=== PATIENT | female | born 1955 | race Caucasian/White ===

== ENCOUNTER → 2018-04-20 | Outpatient (CLI) | payer OTHER ==
[~2018-04-20] MED LIST: (None)20 M1 PO; ACET325 PO; ALBU90OI INH; ALPR1 PO; AMIT25 PO; AMLO5 PO; ASPI81CH PO; ATOR80 PO; BENZ100A PO; BUSP15 PO; CODGUAEL PO; DULO60 PO; FLUSAL2505 INH; FURO20 PO; ISOMON20; Isosorbide Mono30 MG PO; LEVSOD50 PO; METCAR500 PO; METF500 PO; METO25ER PO; NEBI5 PO; POTCHL10ER PO; PRED20 PO; TIOT18 INH; Zegerid 40 MG1 EACH PO; Zithromax250 MG PO
[2018-04-20 09:22] LABS: BASOPHILS ABSOLUTE AUTO 0.05 K/mm3 (0.00-0.23); BASOPHILS PERCENT AUTO 0 % (0-2); EOSINOPHILS ABSOLUTE AUTO 0.21 K/mm3 (0.00-0.68); EOSINOPHILS PERCENT AUTO 2 % (0-6); Hematocrit 37.4 % (33.0-51.0); Hemoglobin 12.6 g/dL (11.5-16.0); IMMATURE GRAN ABSOLUTE AUTO 0.07 K/mm3 (0.00-0.10); IMMATURE GRAN PERCENT AUTO 1 % (0-1); LYMPHOCYTES ABSOLUTE AUTO 1.32 K/mm3 (0.84-5.20); LYMPHOCYTES PERCENT AUTO 10 % (21-46); MONOCYTES ABSOLUTE AUTO 1.09 K/mm3 (0.16-1.47); MONOCYTES PERCENT AUTO 9 % (4-13); Mean Corpuscular HGB 29.6 pg (26.0-34.0); Mean Corpuscular HGB Conc 33.7 g/dL (31.5-36.5); Mean Corpuscular Volume 88 fL (80-100); Mean Platelet Volume 9.5 fL (9.1-12.4); NEUTROPHILS ABSOLUTE AUTO 10.04 K/mm3 (1.96-9.15); NEUTROPHILS PERCENT AUTO 79 % (41-73); Platelet Count 335 K/mm3 (150-400); RDW Coefficient Variation 15.1 % (11.7-14.2); RDW Standard Deviation 47.3 fL (35.1-46.3); Red Blood Cell Count 4.26 M/mm3 (3.80-5.20); White Blood Cell Count 12.78 K/mm3 (4.00-11.30)
== END | disposition home or self-care (01) ==
LOC: LAB SHORT 09:19 → LAB EV 09:19
PROVIDERS: Physician Assistant
DX: R51 Headache (principal)
CPT/HCPCS: 85025

== ENCOUNTER 2018-06-28 10:44 | Day surgery (SDC) | payer OTHER ==
[~2018-06-28] VITALS: Ht 154.9 cm; Wt 61.8 kg
== END 2018-06-28 14:05 | disposition home or self-care (01) ==
LOC: ORSCSDS 10:44
PROVIDERS: Student in an Organized Health Care Education/Training Program
PROC: 0DB58ZX Excision of Esophagus, Via Natural or Artificial Opening Endoscopic, Diagnostic (ICD-10-PCS; principal; 2018-06-28 13:45)
DX: R13.10 Dysphagia, unspecified (principal); B37.81 Candidal esophagitis; K22.2 Esophageal obstruction; K44.9 Diaphragmatic hernia without obstruction or gangrene; F41.8 Other specified anxiety disorders; E03.9 Hypothyroidism, unspecified; I10 Essential (primary) hypertension; E11.9 Type 2 diabetes mellitus without complications; Z87.891 Personal history of nicotine dependence; Z79.84 Long term (current) use of oral hypoglycemic drugs; Z79.82 Long term (current) use of aspirin; Z79.899 Other long term (current) drug therapy
CPT/HCPCS: 82947; 88305; 88312; J2704; J7120

== ENCOUNTER 2019-02-24 13:52 | Day surgery (SDC) | payer OTHER ==
[~2019-02-24] VITALS: Ht 157.5 cm; Wt 58.0 kg
[2019-02-24] MEDS ORDERED: METO25ER PO (14:49)
[2019-02-24] MEDS ORDERED: TIZA4 (14:49)
[2019-02-24] MEDS ORDERED: LIOT50 PO (14:49)
[2019-02-24] MEDS ORDERED: OMEPRAZOLE20 MG PO (14:49)
== END 2019-02-24 16:56 | disposition home or self-care (01) ==
LOC: ORSCSDS 13:52
PROVIDERS: Student in an Organized Health Care Education/Training Program
PROC: 0DB68ZX Excision of Stomach, Via Natural or Artificial Opening Endoscopic, Diagnostic (ICD-10-PCS; principal; 2019-02-24 15:15)
PROC: 0DB58ZX Excision of Esophagus, Via Natural or Artificial Opening Endoscopic, Diagnostic (ICD-10-PCS; principal; 2019-02-24 15:15)
PROC: 0D758ZZ Dilation of Esophagus, Via Natural or Artificial Opening Endoscopic (ICD-10-PCS; principal; 2019-02-24 15:15)
PROC: 0DB48ZX Excision of Esophagogastric Junction, Via Natural or Artificial Opening Endoscopic, Diagnostic (ICD-10-PCS; principal; 2019-02-24 15:15)
DX: R13.10 Dysphagia, unspecified (principal); K22.2 Esophageal obstruction; I25.10 Atherosclerotic heart disease of native coronary artery without angina pectoris; I10 Essential (primary) hypertension; K21.9 Gastro-esophageal reflux disease without esophagitis; K44.9 Diaphragmatic hernia without obstruction or gangrene; E11.9 Type 2 diabetes mellitus without complications; F41.8 Other specified anxiety disorders; Z79.82 Long term (current) use of aspirin; Z79.84 Long term (current) use of oral hypoglycemic drugs; Z79.899 Other long term (current) drug therapy
CPT/HCPCS: 82947; 88305; 88312; 88342; C1726; J2704; J7120

== ENCOUNTER → 2021-03-12 | Outpatient (CLI) | payer MEDICARE, OTHER ==
[~2021-03-12] MED LIST changes: -ASPI81CH PO; +Aspirin EC81 MG PO; +B Complex-Foli1 EACH PO; -BUSP15 PO; +Buspirone HCl7.5 MG PO; +EZET10 PO; +LIOT25 PO; +MAGNESIUM OXID500 MG PO; +MONT10T PO; +OMEPRAZOLE20 MG PO; +OXYC5 PO; +TIZA4 PO; +VITAMIN D31000 UNI1 PO
== END | disposition home or self-care (01) ==
LOC: LAB SHORT 11:35
PROVIDERS: Family Medicine
DX: M96.1 Postlaminectomy syndrome, not elsewhere classified (principal); Z79.899 Other long term (current) drug therapy
CPT/HCPCS: G0480

== ENCOUNTER → 2021-08-27 | Outpatient (CLI) | payer OTHER ==
[2021-08-31 13:30] LABS: Stool Occult Bld Immuno 1 Negative (NEGATIVE)
== END | disposition home or self-care (01) ==
LOC: LAB SHORT 12:45 → LAB 12:45
PROVIDERS: Family Medicine
DX: Z12.11 Encounter for screening for malignant neoplasm of colon (principal)
CPT/HCPCS: G0328

== ENCOUNTER → 2022-03-18 | Outpatient (CLI) | payer OTHER ==
[~2022-03-18] MED LIST changes: +BENZ100A; +MERIBIN5 MG; +ONDA4ODT; +STIOLTO RESPIMAT4 G1; +VENTAVIS
== END | disposition home or self-care (01) ==
LOC: LAB SHORT 15:00 → LAB 15:00
PROVIDERS: Nurse Practitioner Family
DX: M96.1 Postlaminectomy syndrome, not elsewhere classified (principal)
CPT/HCPCS: G0480

== ENCOUNTER 2022-07-09 10:49 | Day surgery (SDC) | payer OTHER ==
[~2022-07-09] VITALS: Ht 157.5 cm; Wt 69.0 kg
[2022-07-09] VITALS (16 sets, daily range): BP systolic 108–181; BP diastolic 69–124
[~2022-07-09 10:49] MED LIST changes: +BIOTIN 5000 MCG SL; +HYDACE10B PO; +PANT40 PO
--- NOTE | 2022-07-09 15:14 | NUR ---
PATIENT ARRIVED TO RECOVERY ROOM WITH L GROIN SHEATH AND R PEDAL SHEATH IN PLACE. VSS ON ROOM AIR. PATIENT CONVERSING APPROPRIATELY.
--- NOTE | 2022-07-09 16:00 | NUR ---
L GROIN SHEATH PULLED, MANUAL PRESSURE HELD FOR 20 MINUTES. VSS ON ROOM AIR. SITE C/D/I SOFT/NONTENDER, NO EVIDENCE OF HEMATOMA. TEGADERM IN PLACE.
--- NOTE | 2022-07-09 16:07 | NUR ---
L GROIN SHEATH REMOVED AT 1538, PRESSURE CONTINUING AT THIS TIME WITH SHEY FINALIZING HOLD/DRESSING. PT MIKE WELL, R FOOT DP SHEATH WILL BE PULLED SHORTLY.
--- NOTE | 2022-07-09 16:30 | NUR ---
R PEDAL SHEATH PULLED, LEDA DRESSING IN PLACE, DRY AND INTACT. VSS ON ROOM AIR. PATIENT DENYING ANY PAIN.
--- NOTE | 2022-07-09 17:26 | NUR ---
BEDSIDE REPORT GIVEN TO MIKAELA Euceda GROIN SITE AND PEDAL SITE EXAMINED. VSS ON ROOM AIR
--- NOTE | 2022-07-09 17:56 | NUR ---
ASSUMED CARE OF PT. REPORT FROM SIOBHAN MANN. PT A&Ox4. PT SITING UP IN BED EATING FOOD. PEDAL SITE SOFT AND NON-TENDER W/ NO BLEEDING NOTED. GROIN SITE SITE AND NON-TENDER PER PT W/ NO BLEEDING NOTED WELL.
--- NOTE | 2022-07-09 19:07 | NUR ---
PRIOR TO DC THE PT BEGAN COMPLAINING OF NAUSEA AFTER STANDING UP TO GET CHANGED INTO CLOTHES. DR SKELTON CALLED AND INFORMED. PT GIVEN 4 MG ZOFRAN PIV PER DR SKELTON. DR SKELTON STILL OK TO DC HOME. PT REPORTS DECREASE IN NAUSEA. PT GIVEN DC INSTRUCTIONS AND VERBALIZED UNDERSTANDING. IV OUT. BOTH GROIN AND PEDAL SITE SOFT AND NON-TENDER PER PT. NO BLEEDING NOTED. PT TAKEN TO [facility] VIA WC. [facility]SPORT TO TAKE PT HOME. PT STS SHE HAS SOMEONE WHO CAN STAY WITH HER TONIGHT.
== END 2022-07-09 19:00 | disposition home or self-care (01) ==
LOC: MHTC 10:49
DX: E11.51 Type 2 diabetes mellitus with diabetic peripheral angiopathy without gangrene (principal); I70.213 Atherosclerosis of native arteries of extremities with intermittent claudication, bilateral legs; I11.0 Hypertensive heart disease with heart failure; I50.9 Heart failure, unspecified; E78.5 Hyperlipidemia, unspecified; I25.10 Atherosclerotic heart disease of native coronary artery without angina pectoris; Z95.5 Presence of coronary angioplasty implant and graft; Z87.891 Personal history of nicotine dependence; Z88.0 Allergy status to penicillin; Z88.8 Allergy status to other drugs, medicaments and biological substances; Z79.82 Long term (current) use of aspirin; Z79.899 Other long term (current) drug therapy
CPT/HCPCS: 76937; 99152; 99153; C1725; C1769; C1887; C1894; J1200; J1644; J1720; J2250; J2405; J3010; J7030; J7050; Q9967

== ENCOUNTER 2022-07-23 10:37 | Inpatient (IN) | payer OTHER, MEDICARE ==
--- NOTE | 2022-07-22 16:25 | NUR ---
DURING CHART PREP, I NOTED THE POTASSIUM OF 2.[address] REPORT[address] THIS TO DR[address] SKELTON AND MARYANA HIS BEN.
[~2022-07-23] VITALS: Ht 157.5 cm; Wt 64.4 kg
[2022-07-23] VITALS (26 sets, daily range): BP systolic 79–155; BP diastolic 58–96
[~2022-07-23 10:37] MED LIST changes: -LEVSOD50 PO; +LEVSOD75 PO; -ONDA4ODT; +ONDA4ODT SL
[2022-07-23] MEDS ORDERED: OMEP20ER PO (10:55)
[2022-07-23] MEDS ORDERED: IBUP800 PO (10:55)
[2022-07-23] MEDS ORDERED: TIZA4 PO (10:56)
[2022-07-23 11:51] LABS: Bun/Creatinine Ratio 10.8 (12.0-20.0); Calcium, Blood 8.7 mg/dL (8.5-10.1); Creatinine, Blood 0.65 mg/dL (0.40-1.00); Potassium, Blood 4.4 mmol/L (3.5-5.5)
[2022-07-23 14:51] LABS: BASOPHILS ABSOLUTE AUTO 0.05 K/mm3 (0.00-0.23); BASOPHILS PERCENT AUTO 0 % (0-2); EOSINOPHILS ABSOLUTE AUTO 0.18 K/mm3 (0.00-0.68); EOSINOPHILS PERCENT AUTO 1 % (0-6); Hematocrit 29.9 % (33.0-51.0); IMMATURE GRAN ABSOLUTE AUTO 0.22 K/mm3 (0.00-0.10); IMMATURE GRAN PERCENT AUTO 1 % (0-1); LYMPHOCYTES ABSOLUTE AUTO 2.25 K/mm3 (0.84-5.20); LYMPHOCYTES PERCENT AUTO 14 % (21-46); MONOCYTES ABSOLUTE AUTO 0.69 K/mm3 (0.16-1.47); MONOCYTES PERCENT AUTO 4 % (4-13); Mean Corpuscular HGB 30.5 pg (26.0-34.0); Mean Corpuscular HGB Conc 33.4 g/dL (31.5-36.5); Mean Corpuscular Volume 91 fL (80-100); Mean Platelet Volume 9.3 fL (9.1-12.4); NEUTROPHILS ABSOLUTE AUTO 12.28 K/mm3 (1.96-9.15); NEUTROPHILS PERCENT AUTO 78 % (41-73); NRBC ABSOLUTE 0.02 K/mm3 (0.00-0.02); NRBC Auto 0.1 /100 WBC (0.0-0.2); Platelet Count 383 K/mm3 (150-400); RDW Coefficient Variation 14.9 % (11.7-14.2); RDW Standard Deviation 48.6 fL (35.1-46.3); Red Blood Cell Count 3.28 M/mm3 (3.80-5.20); White Blood Cell Count 15.67 K/mm3 (4.00-11.30)
--- NOTE | 2022-07-23 18:33 | NUR ---
ARRIVED TO ICU AT 1701 NEURO: A/O CARDIAC: SR, BP 125/62 RESP: ROOM AIR, O2 SAT > 94% GI: DENIES N/V. CL LIQ DIET ORDERED FOR DINNER, THEN NPO AFTER MIDNIGHT : LITTLE FOR STRICT I/O. UA ORDERED SKIN: ACCESS SITE LEFT GROIN, OOZING, SOFT. PALPABLE LUMP UNDER ACCESS SITE, PER DR. SKELTON, THIS IS A LYMPH NODE CONFIRMED BY ULTRASOUND. MEASUREMENTS OF BILAT LEGS FOLLOWS: RIGHT (AFFECTED) LEG - MEASURED FROM THE ANKLE UP, ALL AREAS MEASURED ARE MARKED WITH PERMANENT MARKER. ANKLE - 7.5 CM CALF - 28.5 CM BELOW KNEE - 32.0 CM THIGH - 40 CM LEFT (UNAFFECTED) LEG ANKLE - 7.5 CM CALF - 28.0 CM BELOW KNEE - 31 CM THIGH - 40 CM IV: PIV X2, ANGIOMAX INFUSING. PSYCH: CONTACTED PT'S NEIGHBOR TO REQUEST SHE CARE FOR PT'S DOG. SHE AGREES TO PICK DOG UP. CONTACTED PT'S DAUGHTER AND GRANDDAUGHTER. BOTH UPDATED ON POC AND CURRENT STATUS DR. SKELTON TO BEDSIDE, DR. DALY TO BEDSIDE, CONFIRMED VIA PHONE THAT ER PROVIDER WILL BE ADMITTING PT. DR. DALY WILL CONTINUE TO FOLLOW PT TOMORROW. CONTACT INFORMATION GIVEN TO ONCOMING SHIFT.
[2022-07-23 20:35] LABS: Hematocrit 32.6 % (33.0-51.0); Hemoglobin 10.5 g/dL (11.5-16.0)
[2022-07-23 22:15] LABS: Source, Urine Foley catheter
[2022-07-23 22:28] LABS: Appearance, Urine Hazy (Clear); Bilirubin, Urine Neg (Neg); Blood, Urine 5+ (Neg); Color, Urine Yellow (P-Yellow); Glucose Qualitative, Urine Neg (Neg); Ketones, Urine 2+ (Neg); Leukocyte Esterase, Urine 1+ (Neg); Nitrite, Urine Neg (Neg); Protein, Urine 2+ (Neg); Specific Gravity, Urine 1.005 (1.003-1.022); Urobilinogen, Urine 1+ (Normal)
[2022-07-23 22:40] LABS: Bacteria Few /hpf; Red Blood Cells, Urine 25-50 /hpf (0-2); Squamous Epithelial Cells Few /hpf (Few)
--- NOTE | 2022-07-23 22:42 | NUR ---
LEG CIRCUMFRANCES DONE FOLLOWED: RIGHT ANKLE 17 CM, CALF 29CM, BELOW KNEE 32.7, THIGH 40CM. LEFT ANKLE 17.4, CALF 27, BELOW KNEE 31, THIGH 39. SLIGHT DIFFERANCE NOTED,
[2022-07-24] VITALS (44 sets, daily range): BP systolic 83–163; BP diastolic 49–106
[2022-07-24 05:20] LABS: BASOPHILS ABSOLUTE AUTO 0.03 K/mm3 (0.00-0.23); BASOPHILS PERCENT AUTO 0 % (0-2); EOSINOPHILS ABSOLUTE AUTO 0.01 K/mm3 (0.00-0.68); EOSINOPHILS PERCENT AUTO 0 % (0-6); Hematocrit 27.6 % (33.0-51.0); Hemoglobin 9.1 g/dL (11.5-16.0); IMMATURE GRAN ABSOLUTE AUTO 0.06 K/mm3 (0.00-0.10); IMMATURE GRAN PERCENT AUTO 0 % (0-1); LYMPHOCYTES ABSOLUTE AUTO 2.28 K/mm3 (0.84-5.20); LYMPHOCYTES PERCENT AUTO 15 % (21-46); MONOCYTES ABSOLUTE AUTO 1.27 K/mm3 (0.16-1.47); MONOCYTES PERCENT AUTO 8 % (4-13); Mean Corpuscular HGB 30.4 pg (26.0-34.0); Mean Corpuscular Volume 92 fL (80-100); Mean Platelet Volume 9.5 fL (9.1-12.4); NEUTROPHILS ABSOLUTE AUTO 11.66 K/mm3 (1.96-9.15); NEUTROPHILS PERCENT AUTO 76 % (41-73); NRBC ABSOLUTE 0.05 K/mm3 (0.00-0.02); NRBC Auto 0.3 /100 WBC (0.0-0.2); Platelet Count 375 K/mm3 (150-400); RDW Coefficient Variation 14.9 % (11.7-14.2); RDW Standard Deviation 48.5 fL (35.1-46.3); Red Blood Cell Count 2.99 M/mm3 (3.80-5.20); White Blood Cell Count 15.31 K/mm3 (4.00-11.30)
[2022-07-24 05:37] LABS: Albumin, Blood 2.6 g/dL (3.4-5.0); Albumin/Globulin Ratio 0.7 (0.8-1.8); Bilirubin, Total 0.6 mg/dL (0.1-1.0); Bun/Creatinine Ratio 19.8 (12.0-20.0); Calcium, Blood 7.5 mg/dL (8.5-10.1); Creatinine, Blood 0.56 mg/dL (0.40-1.00); Globulin, Blood 3.5 g/dL (2.2-4.0); Potassium, Blood 3.7 mmol/L (3.5-5.5); Total Protein, Blood 6.1 g/dL (6.4-8.2)
--- NOTE | 2022-07-24 06:52 | NUR ---
PT'S LOWER EXTREMITIES WARM BILAT. DOPPLER PEDAL PULSES. PT HAS HAD PAIN IN LEFT HIP AREA THAT TRAVELS DOWN LEFT LEG. MEDICATED PT WITH FENTANYL THREE TIMES FOR PAIN. CONTINUES ON ANGIOMAX. NO S/S BLEEDING TO NOTE. WILL CONTINUE TO MONITOR PT, AND WILL REPORT OFF TO ONCOMING RN
--- NOTE | 2022-07-24 07:33 | NUR ---
ASSUMED CARE OF PT AT 0715 BEDSIDE REPORT RECEIVED FROM SIOBHAN CLEMENTS. PT IS A/O, NPO, LITTLE PATENT AND DRAINING CLEAR YELLOW URINE. RIGHT LEG MEASUREMENTS ARE LARGELY UNCHANGED. PT C/O TENDERNESS IN THE RIGHT CALF AND RIGHT THIGH. SHE ALSO C/O RIGHT FLANK PAIN. PT IS TEARFUL AND EXPRESSES FEAR ABOUT THIS HOSPITALIZATION. PTT UNABLE TO BE PROCESSED PER LAB, TECH WILL BE COMING TO BEDSIDE TO REDRAW. RN TO CONTINUE TO MONITOR.
[2022-07-24 10:56] LABS: Hematocrit 23.8 % (33.0-51.0); Hemoglobin 8.1 g/dL (11.5-16.0)
--- NOTE | 2022-07-24 11:35 | NUR ---
PT C/O RIGHT FLANK PAIN AND HGB DECREASED TO 9.[address] SKELTON, LEFT MESSAGE REQUESTING RETURN CALL. CALL PLACED TO DR. PACE PT IS EFM PATIENT AND HOSPITALIST IS FOLLOWING. ANGIOMAX INFUSION CONTINUES WITH NO RATE CHANGE. PTT IS 98.2. ADDRESSED WITH DR. SKELTON AT 10:00, D/C DRIP, ORDER PLACED. CT ABD PELVIS ORDERED AND COMPLETED. RESULTS COMMUNICATED WITH DR. SKELTON BY DR. PACE. DR. CANSECO CONSULTED FOR ACUTE CARE MANAGEMENT. HGB DECREASED TO 8.1. TYPE AND SCREEN AND 2 UNITS OF PRBC'S ORDERED BY DR. CANSECO. OFFERED TO UPDATE FAMILY, PT DECLINED AND STATED SHE HAS UPDATED HER GRANDDAUGHTER ALREADY. TYPE AND SCREEN DRAWN AND SENT TO LAB. AWAITING BLOOD PRODUCTS. CONFIRMED BLOOD CONSENT WITH PT.
[2022-07-24 16:16] LABS: Hematocrit 30.5 % (33.0-51.0); Hemoglobin 10.4 g/dL (11.5-16.0)
--- NOTE | 2022-07-24 17:20 | NUR ---
END OF SHIFT SUMMARY NEURO: A/O, PLEASANT AND COOPERATIVE. CARDIAC: SR - ST, BP WNL RESP: 2L NC WHILE ASLEEP, RA WHILE AWAKE TO MAINTAIN O2 SAT > 94% GI: NPO IN ANTICIPATION OF POSSIBLE PROCEDURE TODAY. DIET ORDERED FOR DINNER PT HAS STABILIZED. HAS HAD SIPS OF WATER TODAY, DENIES NAUSEA. CBG 119, NO COVERAGE INDICATED. : LITTLE TO GRAVITY PATENT AND DRAINING CLEAR YELLOW URINE. SKIN: PETECHIAE NOTED TO ABDOMEN AND RIGHT LEG, BEGINNING AT 1200. LEG MEASUREMENTS UNCHANGED. IV: PG TO RIGHT UPPER ARM, PIV TO BILAT FOREARMS, ALL SL. PT TO CT ABD AND PELVIS, RETROPERITONEAL BLEED SEEN ON SCANS. PT REQUIRED 2 UNITS PRBC'S INFUSED, TOLERATED WELL. REPEAT H/H REVEALED RETURN OF H/H TO NEAR BASELINE AT ADMIT. NEXT H/H SCHEDULED FOR [address] CANSECO. PTT TO BE RECHECKED IN AM. NO FAMILY AT BEDSIDE. UPDATED DAUGHTER AND GRANDDAUGHTER VIA PHONE WITH PT'S PERMISSION. PAIN IMPROVED WITH DILAUDID IV, PT RESTING AFTER BLOOD TRANSFUSION.
[2022-07-24 21:22] LABS: Hematocrit 30.3 % (33.0-51.0); Hemoglobin 10.2 g/dL (11.5-16.0)
--- NOTE | 2022-07-24 21:51 | NUR ---
ASSUMPTION OF CARE/ASSESSMENT: ASSUMED CARE OF PT AT 1900. PT IS IN BED, A&O X 4 AND VERY PLEASANT/COOPERATIVE WITH CARE. PT CURRENTLY ON 2L NC WHILE RESTING; LUNG SOUNDS CLEAR, DIM BASES, SPO2 98<, AND NO C/O SOB. PT SR ON MONITOR WITH HR 80-90'S AND SBP 120'S, NO C/O CHEST PAIN AT THIS TIME. HYPOACTIVE BOWEL SOUNDS, ABD SOFT/NON-TENDER; PT TOLERATED DINNER TONIGHT WITH SMALL INTAKE. MEASUREMENTS THE SAME LAST SHIFT ON R. LEG; NO INCREASE IN SWELLING IN R. LEG. PT HAS MINIMAL PAIN IN R. LEG BUT IT IS TOLERABLE. CALF IS NOT TENDER TO TOUCH, PT C/O PAIN IN R. CALF WHEN REPOSITIONING/BEARING WEIGHT. PT ABLE TO TRANSFER TO CHAIR AT BEDSIDE FOR BED LINEN CHANGE; TOLERATED VERY WELL. PT GRANDDAUGHTER, ALBERTO, CALLED UNIT AND UPDATED ON PT'S STATUS, ALL QUESTIONS ANSWERED AT THIS TIME. BED LOWERED, CALL LIGHT IN REACH, WILL CONTINUE TO MONITOR.
[2022-07-25] VITALS (36 sets, daily range): BP systolic 87–155; BP diastolic 53–93
--- NOTE | 2022-07-25 06:26 | NUR ---
SHIFT SUMMARY: NO ACUTE CHANGES THROUGHOUT THE NIGHT. PT CBG STABLE AND NO INSULIN COVERAGE REQUIRED; MOST RECENT CBG @ 0600 AT 88. PT REQUESTED ONE 4-OZ [employer] AT THIS TIME, AND STILL DOES NOT HAVE AN APPETITE. PT WAS ABLE TO SLEEP THROUGHOUT THE NIGHT. NO INCREASE IN MEASUREMENTS IN R. CALF; PT STILL DOES NOT HAVE SIGNIFICANT PAIN COMPLAINTS. VSS THROUGHOUT THE NIGHT. BED LOWERED, CALL LIGHT IN PLACE, WILL CONTINUE TO MONITOR UNTIL ONCOMING RN ARRIVES.
[2022-07-25 07:16] LABS: BASOPHILS ABSOLUTE AUTO 0.06 K/mm3 (0.00-0.23); BASOPHILS PERCENT AUTO 0 % (0-2); EOSINOPHILS ABSOLUTE AUTO 0.11 K/mm3 (0.00-0.68); EOSINOPHILS PERCENT AUTO 1 % (0-6); Hematocrit 30.6 % (33.0-51.0); Hemoglobin 10.2 g/dL (11.5-16.0); IMMATURE GRAN ABSOLUTE AUTO 0.05 K/mm3 (0.00-0.10); IMMATURE GRAN PERCENT AUTO 0 % (0-1); LYMPHOCYTES PERCENT AUTO 14 % (21-46); MONOCYTES ABSOLUTE AUTO 1.72 K/mm3 (0.16-1.47); MONOCYTES PERCENT AUTO 12 % (4-13); Mean Corpuscular HGB 29.6 pg (26.0-34.0); Mean Corpuscular HGB Conc 33.3 g/dL (31.5-36.5); Mean Corpuscular Volume 89 fL (80-100); Mean Platelet Volume 9.4 fL (9.1-12.4); NEUTROPHILS PERCENT AUTO 73 % (41-73); NRBC ABSOLUTE 0.06 K/mm3 (0.00-0.02); NRBC Auto 0.4 /100 WBC (0.0-0.2); Platelet Count 280 K/mm3 (150-400); RDW Coefficient Variation 16.4 % (11.7-14.2); RDW Standard Deviation 52.2 fL (35.1-46.3); Red Blood Cell Count 3.45 M/mm3 (3.80-5.20); White Blood Cell Count 14.84 K/mm3 (4.00-11.30)
[2022-07-25 07:28] LABS: Bun/Creatinine Ratio 14.7 (12.0-20.0); Calcium, Blood 7.3 mg/dL (8.5-10.1); Creatinine, Blood 0.68 mg/dL (0.40-1.00); Potassium, Blood 3.2 mmol/L (3.5-5.5)
--- NOTE | 2022-07-25 09:34 | NUR ---
AM NOTE... ASSUMED CARE OF PT AT 0700. PT IS A&Ox4. PT C/O OF 09/18 TO HER RLE WITH MOVEMENT. SHE IS IN SR IN THE 90'S BP STABLE. LEFT GROIN SITE IS STABLE. PT DENIES ANY ABD PAIN AT THIS TIME. THE PT'S RIGHT LEG IS WARM TO THE TOUCH PEDAL PULSES ARE FAINT BUT PALPABLE, TIBIAL PULSES FOUND WITH DOPPLER. PT'S BP IS STABLE WITH MAPS >65. CALL LIGHT IN REACH WILL CONTINUE TO MONITOR.
--- NOTE | 2022-07-25 11:37 | NUR ---
PT TRANSFER.... PT TRANSFERED TO MEDICAL FLOOR, ALL OF PT'S BELONGINGS WERE PACKED AND SENT WITH THE PT. REPORT GIVEN TO YVONNE Terry RN. PT'S VSS PT'S LITTLE WAS REMOVED WNL AT 1030 AM. PT HAS NOT VOIDED SINCE REMOVAL.
--- NOTE | 2022-07-25 12:04 | NUR ---
PT TRANSFER PT ARRIVED TO THE MEDICAL FLOOR FROM THE ICU VIA WHEELCHAIR. THE PT IS A/OX4, PLEASANT AND COOPERATIVE, APPEARS TO BE BREATHING EASILY ON RA AT THIS TIME. PT REPORTS RIGHT GROIN AND BACK PAIN. PT MEDICATED FOR PAIN. PT ORIENTED TO THE ROOM LAYOUT AND CALL SYSTEM. REPORT TAKEN FROM ESTRELLITA SAP ABAP DEVELOPER.
--- NOTE | 2022-07-25 19:25 | NUR ---
PT IS A/OX4, PLEASANT AND COOPERATIVE, THE PT IS UP WITH ASSIST USEING THE FWW. PT HAS PAIN IN HER RLE MORE WITH AMBULATION. PT WAS MEDICATED FOR PAIN T/O THE DAY. THE PT WORKED WITH THE OCUPATIONAL THERAPIST TODAY. PT APPEARS TO BE BREATHING EASILY ON RA AT THIS TIME. CALL LIGHT IN REACH WILL CONTINUE TO MONIOTR AND ASSESS FOR CHANGES
[2022-07-26 03:54] VITALS: BP 136/69
--- NOTE | 2022-07-26 06:36 | NUR ---
SHIFT SUMMARY: PT A&O X4. PT PLEASANT AND COOPERATIVE WITH CARE. NO ACUTE CHANGES WITH PT THIS SHIFT. PT C/O 08/18 PAIN THIS SHIFT IN R.LEG. MEDICATED PER EMAR AND HAS NOT C/O PAIN AGAIN. OFFERED PAIN MEDICATION WITH MORNING MEDS BUT DECLINED OFFER. PT SB ASSIST WITH FWW TO RESTROOM. PT PAINFUL WITH AMBULATION BUT ABLE TO TOLERATE WALKING SHORT DISTANCES. CALL LIGHT IN REACH. BED IN LOWEST POSITION. WILL CONTINUE TO MONITOR.
[2022-07-26 07:07] LABS: BASOPHILS ABSOLUTE AUTO 0.05 K/mm3 (0.00-0.23); BASOPHILS PERCENT AUTO 0 % (0-2); EOSINOPHILS ABSOLUTE AUTO 0.11 K/mm3 (0.00-0.68); EOSINOPHILS PERCENT AUTO 1 % (0-6); Hematocrit 33.1 % (33.0-51.0); Hemoglobin 11.1 g/dL (11.5-16.0); IMMATURE GRAN ABSOLUTE AUTO 0.05 K/mm3 (0.00-0.10); IMMATURE GRAN PERCENT AUTO 0 % (0-1); LYMPHOCYTES ABSOLUTE AUTO 1.84 K/mm3 (0.84-5.20); LYMPHOCYTES PERCENT AUTO 13 % (21-46); MONOCYTES ABSOLUTE AUTO 1.13 K/mm3 (0.16-1.47); MONOCYTES PERCENT AUTO 8 % (4-13); Mean Corpuscular HGB 29.8 pg (26.0-34.0); Mean Corpuscular HGB Conc 33.5 g/dL (31.5-36.5); Mean Corpuscular Volume 89 fL (80-100); Mean Platelet Volume 9.6 fL (9.1-12.4); NEUTROPHILS ABSOLUTE AUTO 11.49 K/mm3 (1.96-9.15); NEUTROPHILS PERCENT AUTO 79 % (41-73); NRBC ABSOLUTE 0.02 K/mm3 (0.00-0.02); NRBC Auto 0.1 /100 WBC (0.0-0.2); Platelet Count 284 K/mm3 (150-400); RDW Standard Deviation 51.6 fL (35.1-46.3); Red Blood Cell Count 3.72 M/mm3 (3.80-5.20); White Blood Cell Count 14.67 K/mm3 (4.00-11.30)
[2022-07-26 07:26] VITALS: BP 142/61
[2022-07-26 15:08] VITALS: BP 133/65
--- NOTE | 2022-07-26 17:33 | NUR ---
P[T ISW A/OX4, PLEASANT AND COOPERATIVE, THE PT IS UP WITH MINIMAL ASSIST USEING THE FWW. THE PT REPORTS PAIN IN HER LEGS IMPROVED COMPARED TO YESTERDAY. THE PT WAS MEDICATED FOR PAIN T/O THE DAY. PT APPEARS TO BE BREATHING EASILY ON RA AT THIS TIME, THE PT WORKED WITH THE PHYSICAL THERAPIST TODAY. CALL LIGHT IN REACH, WILL CONTINUE TO MONITOR AND ASSESS FOR CHANGES
[2022-07-26 20:11] VITALS: BP 115/62
[2022-07-27 04:46] VITALS: BP 96/59
--- NOTE | 2022-07-27 04:50 | NUR ---
SHIFT SUMMARY: PT A&O X4. PT PLEASANT AND COOPERATIVE WITH CARE. PT ABLE TO USE RESTROOM WITH STANDBY ASSIST. PT STATES OXY AND TYLENOL ARE WORKING WELL FOR HER PAIN. PT HAS SOME CONCERNS OF BEING ON NARCOTICS. STATES SHE DOES NOT WANT TO BECOME ADDICTED. WILL PASS ON TO DAY SHIFT FOR CONCERN OF D/C MEDICATIONS. PT SLEPT HARD THROUGHOUT EVENING. PT STATES SHE FEELS COMFORTABLE TO GO HOME TODAY. POWERGLIDE ABLE TO DRAW AT BEGINNING OF SHIFT. WOULD NOT DRAW FOR LABS. TELE IN PLACE RUNNING SINUS RHYTHM. CALL LIGHT IN REACH. BED IN LOWEST POSITION. WILL CONTINUE TO MONITOR.
[2022-07-27 06:16] LABS: BASOPHILS ABSOLUTE AUTO 0.07 K/mm3 (0.00-0.23); BASOPHILS PERCENT AUTO 1 % (0-2); EOSINOPHILS ABSOLUTE AUTO 0.17 K/mm3 (0.00-0.68); EOSINOPHILS PERCENT AUTO 2 % (0-6); Hematocrit 29.8 % (33.0-51.0); IMMATURE GRAN ABSOLUTE AUTO 0.11 K/mm3 (0.00-0.10); IMMATURE GRAN PERCENT AUTO 1 % (0-1); LYMPHOCYTES ABSOLUTE AUTO 1.58 K/mm3 (0.84-5.20); LYMPHOCYTES PERCENT AUTO 14 % (21-46); MONOCYTES ABSOLUTE AUTO 0.74 K/mm3 (0.16-1.47); MONOCYTES PERCENT AUTO 7 % (4-13); Mean Corpuscular HGB 29.5 pg (26.0-34.0); Mean Corpuscular HGB Conc 33.6 g/dL (31.5-36.5); Mean Corpuscular Volume 88 fL (80-100); Mean Platelet Volume 9.9 fL (9.1-12.4); NEUTROPHILS ABSOLUTE AUTO 8.35 K/mm3 (1.96-9.15); NEUTROPHILS PERCENT AUTO 76 % (41-73); NRBC ABSOLUTE 0.03 K/mm3 (0.00-0.02); NRBC Auto 0.3 /100 WBC (0.0-0.2); Platelet Count 279 K/mm3 (150-400); RDW Standard Deviation 50.5 fL (35.1-46.3); Red Blood Cell Count 3.39 M/mm3 (3.80-5.20); White Blood Cell Count 11.02 K/mm3 (4.00-11.30)
[2022-07-27 06:38] LABS: Anion Gap 7 mmol/L (6-16); Blood Urea Nitrogen 9 mg/dL (8-24); Bun/Creatinine Ratio 16.5 (12.0-20.0); CO2, Blood 24 mmol/L (21-32); Calcium, Blood 8.1 mg/dL (8.5-10.1); Chloride, Blood 112 mmol/L (98-108); Creatinine, Blood 0.55 mg/dL (0.40-1.00); Glomerular Filtration Rate 101 (60-); Glucose, Blood 121 mg/dL (70-99); Phosphorus, Blood 3.3 mg/dL (2.5-4.9); Potassium, Blood 3.5 mmol/L (3.5-5.5); Sodium, Blood 143 mmol/L (136-145)
[2022-07-27 07:28] VITALS: BP 119/65
[2022-07-27] MEDS ORDERED: CLOP75 PO (10:00)
[2022-07-27] MEDS ORDERED: ACET500 PO (10:00)
[2022-07-27] MEDS ORDERED: GABA300 PO (10:01)
[2022-07-27] MEDS ORDERED: MIRALAX17 GM PO (10:01)
[2022-07-27] MEDS ORDERED: OXAYDO5 M1 PO (10:01)
--- NOTE | 2022-07-27 11:29 | NUR ---
PT DISCHARGED THE PT VERBALIZED UNDERSTANDING OF THE DC INSTRUCTIONS. PTS PRESCRIPTIONS FAXED TO [facility]. PT WAS GIVEN A HARD COPY PRESCRIPTION FOR OXYCODONE. THE PT WAS REMINDED TO CALL HER PCP FOR A POST HOSPITAL REVIEW APPOINTMENT. PT TRANSFERED VIA WHEELCHAIR ACCOMPANIED BY THE FOOD QUALITY TECHNICIAN TO MEET HER RIDE AT THE ENTRANCE
[2022-07-31] MEDS ORDERED: ELIQUIS5 MG PO (19:43)
== END 2022-07-27 11:14 | disposition home health service (06) | DRG 908 ==
LOC: MHTC 10:37 → ICUE 10:37 → MHTC 10:38 → ICUE 10:38 → MHTC 11:00 → ICUE 17:27 → MHTC 07-24 10:08 → ICUE 07-24 10:09 → MEDS 07-25 11:15
PROVIDERS: Family Medicine; Internal Medicine Critical Care Medicine; Nurse Practitioner Acute Care; Radiology Diagnostic Radiology; ADMIT Internal Medicine
PROC: 047H3ZZ Dilation of Right External Iliac Artery, Percutaneous Approach (ICD-10-PCS; 2022-07-23)
PROC: 047K36Z Dilation of Right Femoral Artery with Three Drug-eluting Intraluminal Devices, Percutaneous Approach (ICD-10-PCS; 2022-07-23)
PROC: 04CK3ZZ Extirpation of Matter from Right Femoral Artery, Percutaneous Approach (ICD-10-PCS; 2022-07-23)
PROC: 047K3EZ Dilation of Right Femoral Artery with Two Intraluminal Devices, Percutaneous Approach (ICD-10-PCS; 2022-07-23)
PROC: 047K3Z1 Dilation of Right Femoral Artery using Drug-Coated Balloon, Percutaneous Approach (ICD-10-PCS; 2022-07-23)
PROC: 047M3ZZ Dilation of Right Popliteal Artery, Percutaneous Approach (ICD-10-PCS; 2022-07-23)
PROC: 3E05317 Introduction of Other Thrombolytic into Peripheral Artery, Percutaneous Approach (ICD-10-PCS; 2022-07-23)
PROC: 30233N1 Transfusion of Nonautologous Red Blood Cells into Peripheral Vein, Percutaneous Approach (ICD-10-PCS; principal; 2022-07-24)
PROC: 0T9B70Z Drainage of Bladder with Drainage Device, Via Natural or Artificial Opening (ICD-10-PCS; 2022-07-24)
DX: I97.618 Postprocedural hemorrhage of a circulatory system organ or structure following other circulatory system procedure (principal); D62 Acute posthemorrhagic anemia; D68.59 Other primary thrombophilia; L76.22 Postprocedural hemorrhage of skin and subcutaneous tissue following other procedure; I50.32 Chronic diastolic (congestive) heart failure; E11.51 Type 2 diabetes mellitus with diabetic peripheral angiopathy without gangrene; I25.10 Atherosclerotic heart disease of native coronary artery without angina pectoris; J45.909 Unspecified asthma, uncomplicated; E78.5 Hyperlipidemia, unspecified; E03.9 Hypothyroidism, unspecified; R58 Hemorrhage, not elsewhere classified; I11.0 Hypertensive heart disease with heart failure; M19.90 Unspecified osteoarthritis, unspecified site; K21.9 Gastro-esophageal reflux disease without esophagitis; K22.2 Esophageal obstruction; I71.40 Abdominal aortic aneurysm, without rupture, unspecified; I25.2 Old myocardial infarction; Z98.891 History of uterine scar from previous surgery; Z95.5 Presence of coronary angioplasty implant and graft; Z98.890 Other specified postprocedural states; Z90.89 Acquired absence of other organs; Z90.49 Acquired absence of other specified parts of digestive tract; Z87.891 Personal history of nicotine dependence; Z91.048 Other nonmedicinal substance allergy status; Z88.1 Allergy status to other antibiotic agents; Z88.8 Allergy status to other drugs, medicaments and biological substances; Z91.018 Allergy to other foods; Z79.82 Long term (current) use of aspirin; Z79.890 Hormone replacement therapy; Z79.891 Long term (current) use of opiate analgesic; Z79.84 Long term (current) use of oral hypoglycemic drugs; Z79.899 Other long term (current) drug therapy; Y83.1 Surgical operation with implant of artificial internal device as the cause of abnormal reaction of the patient, or of later complication, without mention of misadventure at the time of the procedure
CPT/HCPCS: 36415; 36430; 37211; 37220; 37231; 74176; 75716; 75774; 76937; 80048; 80053; 80069; 81001; 82947; 83605; 84132; 85014; 85018; 85025; 85730; 86850; 86900; 86901; 86923; 87086; 94760; 96374; 96375; 96376; 97110; 97116; 97162; 97165; 97530; 99152; 99153; A9270; C1714; C1725; C1751; C1769; C1874; C1887; C1894; C2623; G0378; J0360; J0583; J1170; J1200; J1644; J1720; J2250; J2405; J2765; J2997; J3010; J3246; J7030; J7050; P9016; Q9967

== ENCOUNTER 2022-08-26 16:33 | Emergency (ER) | payer OTHER ==
[~2022-08-26] VITALS: Ht 157.5 cm; Wt 59.0 kg
[~2022-08-26 16:33] MED LIST changes: +ACET500 PO; +CLOP75 PO; +ELIQUIS5 MG PO; +GABA300 PO; +IBUP800 PO; +MIRALAX17 GM PO; +OMEP20ER PO; +OXAYDO5 M1 PO
[2022-08-26 16:48] VITALS: BP 186/90
[2022-08-26] MEDS ORDERED: PLAVIX75 MG PO (17:02)
[2022-08-26] MEDS ORDERED: DERMACINRX FOL1 EAC2 PO (17:05)
[2022-08-26 17:15] LABS: BASOPHILS ABSOLUTE AUTO 0.05 K/mm3 (0.00-0.23); BASOPHILS PERCENT AUTO 1 % (0-2); EOSINOPHILS ABSOLUTE AUTO 0.21 K/mm3 (0.00-0.68); EOSINOPHILS PERCENT AUTO 3 % (0-6); Hematocrit 36.7 % (33.0-51.0); IMMATURE GRAN ABSOLUTE AUTO 0.02 K/mm3 (0.00-0.10); IMMATURE GRAN PERCENT AUTO 0 % (0-1); LYMPHOCYTES ABSOLUTE AUTO 2.75 K/mm3 (0.84-5.20); LYMPHOCYTES PERCENT AUTO 33 % (21-46); MONOCYTES PERCENT AUTO 11 % (4-13); Mean Corpuscular HGB 30.2 pg (26.0-34.0); Mean Corpuscular HGB Conc 32.7 g/dL (31.5-36.5); Mean Corpuscular Volume 92 fL (80-100); Mean Platelet Volume 9.5 fL (9.1-12.4); NEUTROPHILS ABSOLUTE AUTO 4.39 K/mm3 (1.96-9.15); NEUTROPHILS PERCENT AUTO 53 % (41-73); Platelet Count 358 K/mm3 (150-400); RDW Coefficient Variation 18.1 % (11.7-14.2); RDW Standard Deviation 61.3 fL (35.1-46.3); Red Blood Cell Count 3.98 M/mm3 (3.80-5.20); White Blood Cell Count 8.32 K/mm3 (4.00-11.30)
[2022-08-26 17:24] LABS: Albumin, Blood 2.8 g/dL (3.4-5.0); Albumin/Globulin Ratio 0.6 (0.8-1.8); Bilirubin, Total 0.4 mg/dL (0.1-1.0); Bun/Creatinine Ratio 9.6 (12.0-20.0); Calcium, Blood 8.4 mg/dL (8.5-10.1); Creatinine, Blood 0.52 mg/dL (0.40-1.00); Globulin, Blood 4.4 g/dL (2.2-4.0); Potassium, Blood 3.3 mmol/L (3.5-5.5); Total Protein, Blood 7.2 g/dL (6.4-8.2)
[2022-08-26 17:25] LABS: International Normalized Ratio 1.09; Prothrombin Time Results 11.4 Sec (9.7-11.5)
== END 2022-08-26 18:42 | disposition home or self-care (01) ==
LOC: ER 16:33
PROVIDERS: Student in an Organized Health Care Education/Training Program
DX: K92.2 Gastrointestinal hemorrhage, unspecified (principal); R19.5 Other fecal abnormalities; Z88.0 Allergy status to penicillin; Z88.8 Allergy status to other drugs, medicaments and biological substances; Z91.018 Allergy to other foods; Z79.899 Other long term (current) drug therapy; Z79.84 Long term (current) use of oral hypoglycemic drugs; I25.10 Atherosclerotic heart disease of native coronary artery without angina pectoris; I11.0 Hypertensive heart disease with heart failure; E78.5 Hyperlipidemia, unspecified; E03.9 Hypothyroidism, unspecified; I50.9 Heart failure, unspecified; J45.909 Unspecified asthma, uncomplicated; I25.2 Old myocardial infarction
CPT/HCPCS: 80053; 85025; 85610; 86850; 86900; 86901; 93005; 93010; 99285-25; A9270

== ENCOUNTER → 2022-09-08 | Outpatient (CLI) | payer OTHER ==
[~2022-09-08] MED LIST changes: +DERMACINRX FOL1 EAC2 PO; +PLAVIX75 MG PO
[2022-09-08 19:02] LABS: Creatinine, Urine Random 23.6 mg/dL (27.00-270.00); Microalb/Creat Ratio UR, Rand 24.492 mg/g (0.000-30.000); Microalbumin, Random Urine 5.78 mg/L (0.000-20.000)
== END | disposition home or self-care (01) ==
LOC: LAB SHORT 13:05 → LAB 13:05 → EDSTATUS 08-28 07:35 → LAB FUT 08-28 07:35
PROVIDERS: Physician Assistant
DX: E11.59 Type 2 diabetes mellitus with other circulatory complications (principal); E11.69 Type 2 diabetes mellitus with other specified complication; K92.2 Gastrointestinal hemorrhage, unspecified
CPT/HCPCS: 82043; 82570

== ENCOUNTER 2023-03-12 17:05 | Emergency (ER) | payer OTHER ==
[~2023-03-12] VITALS: Ht 157.5 cm; Wt 62.1 kg
[2023-03-12 17:14] VITALS: BP 162/102
== END 2023-03-12 17:58 | disposition home or self-care (01) ==
LOC: ER 17:05
DX: S83.92XA Sprain of unspecified site of left knee, initial encounter (principal); J45.909 Unspecified asthma, uncomplicated; I11.0 Hypertensive heart disease with heart failure; I50.9 Heart failure, unspecified; E03.9 Hypothyroidism, unspecified; E78.5 Hyperlipidemia, unspecified; M19.90 Unspecified osteoarthritis, unspecified site; I25.10 Atherosclerotic heart disease of native coronary artery without angina pectoris; Z95.1 Presence of aortocoronary bypass graft; I73.9 Peripheral vascular disease, unspecified; I25.2 Old myocardial infarction; W19.XXXA Unspecified fall, initial encounter
CPT/HCPCS: 73562-LT; 99283-25

== ENCOUNTER → 2023-08-12 | Outpatient (CLI) | payer OTHER ==
[~2023-08-12] MED LIST changes: +ELIQUIS5 M2 PO; +KLOR-CON 1010 ME9 PO; +LOSARTAN POTASS25 M2 PO; +Norco 10-325 T1 EACH PO; +Tessalon200 MG PO; +VITAMIN B12500 MCG PO; +Vitamin D1000 UNI1 PO; +ZESTRIL40 M1 PO
== END ==
LOC: LAB SHORT 18:14 → LAB 18:14
DX: R30.0 Dysuria (principal); Z79.899 Other long term (current) drug therapy
CPT/HCPCS: 87077; 87086; 87186

== ENCOUNTER 2023-08-18 08:53 | Day surgery (SDC) | payer OTHER ==
[~2023-08-18] VITALS: Ht 156 cm; Wt 62.0 kg
[~2023-08-18 08:53] MED LIST changes: -AMIT25 PO; +AMIT50 PO; +LOSA50 PO; -LOSARTAN POTASS25 M2 PO; +Lactated Ringer's 1,000 ML IV SCH; +VITAMIN D31250 MC2 PO; -Vitamin D1000 UNI1 PO
[2023-08-18] MEDS ORDERED: propofoL 20 ML IV ONE (09:11)
[2023-08-18] MEDS ORDERED: Benzocaine Oral Spray 0.5ML UD ONE (09:11)
[2023-08-18] MEDS ORDERED: Cipro500 MG PO (09:38)
[2023-08-18] MEDS ORDERED: BUSPIRONE HCL30 M6 PO (09:39)
[2023-08-18] MEDS ORDERED: HYDROCODONE-AC1 EAC7 PO (09:41)
[2023-08-18] MEDS ORDERED: TM-VITE RX T1000 MCG PO (09:43)
[2023-08-18] MEDS ORDERED: VITAMIN B121000 MCG PO (09:44)
[2023-08-18] MEDS ORDERED: Diflucan200 MG PO (09:48)
--- NOTE | 2023-08-18 10:46 | NUR ---
History, Chart, Medications and Allergies reviewed before start of procedure. Patient up to Ambulate independently. Gait steady. Pre-Op teaching done. Pt verbalizes understanding. Patient confirms NPO status and agrees with scheduled surgery. Lungs clear T/O to Auscultation. Patient States Post-Procedure ride home has been arranged.
[2023-08-18 10:49] VITALS: BP 159/95
[2023-08-18] MEDS ORDERED: Glycopyrrolate 0.2 MG/ML 1MLVIAL ONE (11:51)
--- NOTE | 2023-08-18 11:51 | NUR ---
08/18/[address] SALGADO; SEE ANESTHESIA RECORDS.
[2023-08-18 12:16] VITALS: BP 147/95
[2023-08-18 12:34] VITALS: BP 163/88
[2023-08-18 12:44] VITALS: BP 165/100
--- NOTE | 2023-08-18 12:57 | NUR ---
Discharge instructions reviewed with patient. Patient verbalizes understanding. Copy given to patient to take home. Bp elevated, pt will take medications when home. Denies headache. Patient States Post-Procedure ride home has been arranged. Discharged via wheelchair to private car for ride home.
== END 2023-08-18 13:00 | disposition home or self-care (01) ==
LOC: ORSCMMR 08:53 → ORD 10:00 → ORSCMMR 10:00
PROVIDERS: Internal Medicine Gastroenterology
PROC: 0DB58ZX Excision of Esophagus, Via Natural or Artificial Opening Endoscopic, Diagnostic (ICD-10-PCS; principal; 2023-08-18 10:00)
PROC: 0DB48ZX Excision of Esophagogastric Junction, Via Natural or Artificial Opening Endoscopic, Diagnostic (ICD-10-PCS; principal; 2023-08-18 10:00)
DX: R13.14 Dysphagia, pharyngoesophageal phase (principal); K22.2 Esophageal obstruction; I73.9 Peripheral vascular disease, unspecified; J44.9 Chronic obstructive pulmonary disease, unspecified; I25.2 Old myocardial infarction; E11.9 Type 2 diabetes mellitus without complications; I25.10 Atherosclerotic heart disease of native coronary artery without angina pectoris; E78.00 Pure hypercholesterolemia, unspecified; F41.9 Anxiety disorder, unspecified; I10 Essential (primary) hypertension; E03.9 Hypothyroidism, unspecified; Z87.891 Personal history of nicotine dependence; Z79.899 Other long term (current) drug therapy
CPT/HCPCS: 82947; 88305; 88312; A9270; J2704; J7120

== ENCOUNTER 2023-11-11 07:06 | Day surgery (SDC) | payer OTHER ==
[~2023-11-11] VITALS: Ht 157.5 cm; Wt 63.1 kg
[2023-11-11] VITALS (13 sets, daily range): BP systolic 115–169; BP diastolic 60–104
[~2023-11-11 07:06] MED LIST changes: +BUSPIRONE HCL30 M6 PO; +Cipro500 MG PO; +Diflucan200 MG PO; +HYDROCODONE-AC1 EAC7 PO; +TM-VITE RX T1000 MCG PO; +VITAMIN B121000 MCG PO
[2023-11-11] MEDS ORDERED: Midazolam HCl 1MG / ML 2ML Vial ONE (07:22)
[2023-11-11] MEDS ORDERED: propofoL 20 ML IV ONE (07:22)
[2023-11-11] MEDS ORDERED: Benzocaine Oral Spray 0.5ML UD ONE (07:31)
--- NOTE | 2023-11-11 07:31 | NUR ---
11/11/23 0731 David Christopher CONFIRMED AND REVIEWED H&P, MEDCICATIONS, ALLERGIES, MEDICAL HISTORY, RESPIRATORY HISTORY, VITAL SIGNS, 3-LEAD EKG, CONSENTS, AND PHYSICIAN ORDERS. PATIENT CONFIRMS NPO STATUS AND AGREES WITH SCHEDULED PROCEDURE. MONITOR INTACT WITH CONTINUOUS PULSE OXIMETRY, CAPNOGRAPHY, 3-LEAD EKG, INTERMITTENT BP. SUPPLEMENTAL O2 TO BE TITRATED THROUGHOUT PROCEDURE TO MAINTAIN O2 SATURATION ABOVE 90%. PATIENT DETERMINED TO BE ASA APPROPRIATE FOR PROPOFOL SEDATION PRIOR TO START OF PROCEDURE BY DR. BRANCH
--- NOTE | 2023-11-11 07:37 | NUR ---
History, Chart, Medications and Allergies reviewed before start of procedure. Patient confirms NPO status and agrees with scheduled surgery. Patient States Post-Procedure ride home has been arranged. Lungs clear T/O to Auscultation. Pre-Op teaching done. Pt verbalizes understanding.
--- NOTE | 2023-11-11 08:33 | NUR ---
Discharge instructions reviewed with patient. Patient verbalizes understanding. Copy given to patient to take home. Patient States Post-Procedure ride home has been arranged. Discharged via wheelchair to private car for ride home.
== END 2023-11-11 08:34 | disposition home or self-care (01) ==
LOC: ORSCMMR 07:06 → ORD 08:00 → ORSCMMR 08:00
PROVIDERS: Internal Medicine Gastroenterology
PROC: 0DB58ZX Excision of Esophagus, Via Natural or Artificial Opening Endoscopic, Diagnostic (ICD-10-PCS; principal; 2023-11-11 08:00)
DX: R13.14 Dysphagia, pharyngoesophageal phase (principal); K21.00 Gastro-esophageal reflux disease with esophagitis, without bleeding; I73.9 Peripheral vascular disease, unspecified; K44.9 Diaphragmatic hernia without obstruction or gangrene; Z90.49 Acquired absence of other specified parts of digestive tract; I25.2 Old myocardial infarction; J44.9 Chronic obstructive pulmonary disease, unspecified; E03.9 Hypothyroidism, unspecified; I10 Essential (primary) hypertension; E78.00 Pure hypercholesterolemia, unspecified; F41.9 Anxiety disorder, unspecified; Z87.891 Personal history of nicotine dependence; Z79.899 Other long term (current) drug therapy
CPT/HCPCS: 88305; 88312; A9270; J2250; J2704; J7120

== ENCOUNTER 2024-03-09 10:02 | Day surgery (SDC) | payer OTHER ==
[2024-03-09] VITALS (16 sets, daily range): BP systolic 136–212; BP diastolic 77–180
[~2024-03-09] VITALS: Ht 157.5 cm; Wt 63.3 kg
[2024-03-09] MEDS ORDERED: ACET500 PO (11:04)
[2024-03-09] MEDS ORDERED: Tessalon200 MG PO (11:04)
[2024-03-09] MEDS ORDERED: Vitamin D1000 UNI1 PO (11:04)
[2024-03-09] MEDS ORDERED: POTA10T PO (11:05)
[2024-03-09] MEDS ORDERED: ONDA4ODT MM (11:05)
--- NOTE | 2024-03-09 11:27 | NUR ---
Ambulatory in Day Surgery. History, Chart, Medications and Allergies reviewed before start of procedure. Lungs clear T/O to Auscultation. Patient confirms NPO status and agrees with scheduled surgery. Pre-Op teaching done. Pt verbalizes understanding. Patient States Post-Procedure ride home has been arranged.
[2024-03-09] MEDS ORDERED: Benzocaine Oral Spray 0.5ML UD ONE (11:28)
[2024-03-09] MEDS ORDERED: propofoL 40 ML IV ONE (11:28)
--- NOTE | 2024-03-09 12:48 | NUR ---
DISCHARGE NOTE PT A&OX4, BREATHING RA, VSS, TOLERATING PO FLUIDS. PT HYPERTENSIVE- PER PT DID NOT TAKE USUAL BP MEDICATION THIS AM, PT WAS INSTRUCTED TO DO SO WHEN SHE GOES HOME. Patient up to Ambulate independently. Gait steady.ABDOMEN SOFT AND NON TENDER. PT HAS A BARKING COUGH WHICH SHE INDICATED SHE HAS HAD 'FOR YEARS.' Discharge instructions reviewed with patient. Patient verbalizes understanding. Copy given to patient to take home.RX CALLED IN TO [facility] Discharged via wheelchair to private car for ride home.
--- NOTE | 2024-03-11 08:23 | NUR ---
03/11/24 0823 David Christopher CONFIRMED AND REVIEWED H&P, MEDCICATIONS, ALLERGIES, MEDICAL HISTORY, RESPIRATORY HISTORY, VITAL SIGNS, 3-LEAD EKG, CONSENTS, AND PHYSICIAN ORDERS. PATIENT CONFIRMS NPO STATUS AND AGREES WITH SCHEDULED PROCEDURE. MONITOR INTACT WITH CONTINUOUS PULSE OXIMETRY, CAPNOGRAPHY, 3-LEAD EKG, INTERMITTENT BP. SUPPLEMENTAL O2 TO BE TITRATED THROUGHOUT PROCEDURE TO MAINTAIN O2 SATURATION ABOVE 90%. PATIENT DETERMINED TO BE ASA APPROPRIATE FOR PROPOFOL SEDATION PRIOR TO START OF PROCEDURE BY DR. BRANCH
== END 2024-03-09 12:43 | disposition home or self-care (01) ==
LOC: ORSCMMR 10:02 → ORD 11:00 → ORSCMMR 11:00
PROVIDERS: Internal Medicine Gastroenterology
PROC: 0DB58ZX Excision of Esophagus, Via Natural or Artificial Opening Endoscopic, Diagnostic (ICD-10-PCS; principal; 2024-03-09 11:00)
DX: B37.81 Candidal esophagitis (principal); K22.2 Esophageal obstruction; I73.9 Peripheral vascular disease, unspecified; J44.9 Chronic obstructive pulmonary disease, unspecified; I25.2 Old myocardial infarction; I10 Essential (primary) hypertension; E03.9 Hypothyroidism, unspecified; E78.00 Pure hypercholesterolemia, unspecified; F41.9 Anxiety disorder, unspecified; Z87.891 Personal history of nicotine dependence; Z79.899 Other long term (current) drug therapy
CPT/HCPCS: 87102; 87106; 87186; A9270; J2704; J7120

== ENCOUNTER → 2024-07-12 | Outpatient (CLI) | payer OTHER ==
[~2024-07-12] MED LIST changes: -Lactated Ringer's 1,000 ML IV SCH; +ONDA4ODT MM; +POTA10T PO; +Vitamin D1000 UNI1 PO
[2024-07-12 21:43] LABS: Creatinine, Urine Random 54.9 mg/dL (27.00-270.00); Microalb/Creat Ratio UR, Rand 26.958 mg/g (0.000-30.000); Microalbumin, Random Urine 14.8 mg/L (0.000-20.000)
== END ==
LOC: LAB SHORT 11:00 → LAB 11:00
PROVIDERS: Family Medicine
DX: E11.69 Type 2 diabetes mellitus with other specified complication (principal); E11.59 Type 2 diabetes mellitus with other circulatory complications
CPT/HCPCS: 82043; 82570